=== PATIENT | female | born 1985 | race Caucasian/White ===

== ENCOUNTER → 2019-02-03 | Outpatient (CLI) | payer OTHER ==
[~2019-02-03] MED LIST: NONE PER PT
== END | disposition home or self-care (01) ==
LOC: STAR 15:14
PROVIDERS: ATTEND Obstetrics & Gynecology
DX: Z01.818 Encounter for other preprocedural examination (principal); Z88.8 Allergy status to other drugs, medicaments and biological substances
CPT/HCPCS: 36415; 84703

== ENCOUNTER 2019-02-10 05:40 | Day surgery (SDC) | payer OTHER ==
[~2019-02-10] VITALS: Ht 147.3 cm; Wt 54.3 kg
[2019-02-10] MEDS ORDERED: LACTATED RINGERS 1,000 ML IV SCH (06:08)
[2019-02-10] MEDS ORDERED: EPINEPHRINE 1 MG/ML, 1ML ONE (06:13)
[2019-02-10] MEDS ORDERED: BUPIVACAINE/PF 0.25% ONE (06:13)
[2019-02-10] MEDS ORDERED: ACETAMINOPHEN 500 MG TABLET PO ONE (06:30)
[2019-02-10] MEDS ORDERED: GABAPENTIN 300 MG CAPSULE PO ONE (06:30)
[2019-02-10 06:34] LABS: HCG UR SG 1.024 (1.003-1.030)
[2019-02-10] MEDS ORDERED: SUGAMMADEX 200 MG/2 ML IVPush ONE (06:41)
[2019-02-10] MEDS ORDERED: PROPOFOL 50 ML ONE (06:46)
[2019-02-10] MEDS ORDERED: FENTANYL PF 250 MCG/5ML ONE (06:46)
[2019-02-10] MEDS ORDERED: PROMETHAZINE 25 MG/ML, 1ML IV PRN (07:00)
[2019-02-10] MEDS ORDERED: FENTANYL PF 100 MCG/2ML IV PRN (07:00)
[2019-02-10] MEDS ORDERED: SCOPOLAMINE PATCH, 1.5MG PATCH.TD72 TD ONE (07:00)
[2019-02-10] MEDS ORDERED: DIAZEPAM 5 MG/ML, 2ML IVPush PRN (07:00)
[2019-02-10] MEDS ORDERED: DIAZEPAM 5 MG TABLET PO ONE (07:00)
[2019-02-10] MEDS ORDERED: OXYcodone 5 MG/5 ML ORAL.SOL UDC PO PRN (07:00)
[2019-02-10] MEDS ORDERED: HYDROmorphone 2 MG/ML, 1ML IVPush PRN (07:00)
[2019-02-10] MEDS ORDERED: IBUPROFEN 200 MG TABLET PO PRN (08:00)
[2019-02-10] MEDS ORDERED: IBUPROFEN 600 MG TABLET ONE (09:19)
[2019-02-10] MEDS ORDERED: ONDANSETRON 2MG/ML, 2ML ONE (14:50)
[2019-02-10] MEDS ORDERED: GLYCOPYRROLATE 0.2MG/1ML, 5ML ONE (14:50)
[2019-02-10] MEDS ORDERED: ROCURONIUM 10MG/ML,5ML ONE (14:50)
[2019-02-10] MEDS ORDERED: CEFAZOLIN 1,000 MG ONE (14:50)
[2019-02-10] MEDS ORDERED: PROPOFOL 10 MG/ML, 20ML ONE (14:50)
[2019-02-10] MEDS ORDERED: DEXAMETHASONE 4 MG/ML, 1ML ONE (14:50)
== END 2019-02-10 09:40 | disposition home or self-care (01) ==
LOC: OUT 05:40
PROVIDERS: ATTEND Obstetrics & Gynecology
DX: Z30.2 Encounter for sterilization (principal); Z98.890 Other specified postprocedural states
CPT/HCPCS: 58661; 81025; 88302; J0171; J0690; J1100; J2405; J2704; J3010; J3490; J7120